=== PATIENT | female | born 1965 | race Caucasian/White ===

== ENCOUNTER 2018-12-20 11:49 | Outpatient (CLI) | payer BC ==
--- NOTE | 2018-12-20 12:08 | RAD ---
4 views of the cervical spine: 12/20/2018 COMPARISON: None HISTORY: Neck pain radiating down the left shoulder, cervical radiculitis FINDINGS: There is disc space narrowing and degenerative endplate change with anterior osteophyte for mation and mild posterior osteophyte formation at C5-6. There is no significant anterolisthesis or retrolisthesis noted within the cervical spine. No prevert ebral soft tissue swelling. Open-mouth odontoid view demonstrates a normal-appearing dens and C1-2 articulation. Frontal imaging demonstrates mild bilateral uncovertebral osteophyte formation at C5-6. IMPRESSION: Cervical spine degenerative change as detailed above.
== END 2018-12-20 11:50 | disposition home or self-care (01) ==
LOC: SCSRAD 11:49
PROVIDERS: ATTEND Physician Assistant Medical
DX: M47.22 Other spondylosis with radiculopathy, cervical region (principal)
CPT/HCPCS: 72040

== ENCOUNTER 2025-02-28 10:40 | Outpatient (CLI) | payer BC | END 2025-02-28 10:41 | disposition home or self-care (01) | LOC: BICRAD 10:40 | PROVIDERS: ATTEND Family Medicine | DX: S93.401A Sprain of unspecified ligament of right ankle, initial encounter (principal) ==

== ENCOUNTER 2025-04-03 07:59 | Outpatient (CLI) | payer BC | END 2025-04-03 08:00 | disposition home or self-care (01) | LOC: BICRAD 07:59 | PROVIDERS: ATTEND Family Medicine | DX: S82.831A Other fracture of upper and lower end of right fibula, initial encounter for closed fracture (principal); M79.89 Other specified soft tissue disorders ==